=== PATIENT | male | born 1990 ===

== ENCOUNTER 2019-03-23 16:15 | Outpatient (CLI) | payer BC ==
--- NOTE | 2019-03-23 16:32 | Diagnostic Imaging Report ---
Indication: Pain right ankle Comparison: None Findings: 3 views of the right ankle obtained. No acute fracture, malalignment, periostitis, or osteochondral defects are identified. Soft tissue swelling demonstrated on the lateral side. Impression: No acute findings
--- NOTE | 2019-03-23 16:33 | Diagnostic Imaging Report ---
Indication: right leg pain Comparison: None Findings: Two views of the right tibia and fibula were obtained. No acute fracture, malalignment, or periosteal reaction are identified. Soft tissues are unremarkable. Impression: Negative examination of the tibia and fibula
== END 2019-03-23 18:15 | disposition home or self-care (01) ==
LOC: RAD 16:15
DX: S93.401A Sprain of unspecified ligament of right ankle, initial encounter (principal); M79.604 Pain in right leg; X58.XXXA Exposure to other specified factors, initial encounter; Y92.9 Unspecified place or not applicable